=== PATIENT | male | born 1985 | race Caucasian/White ===

== ENCOUNTER → 2020-12-23 16:20 | Outpatient (CLI) | payer OTHER, SELFPAY ==
--- NOTE | ~2020-12-23 | XR_ITS ---
XR lumbar spine 2-3V DATE: 12/23/2020 17:08 INDICATION: Chronic bilateral low back pain with left sciatica TECHNIQUE: Standing AP, lateral and coned lateral lumbosacral views COMPARISON: None FINDINGS: No fracture or bone destruction is evident. The included lower thoracic and lumbar pedicles are intact. Lumbar and lumbosacral interspaces are well preserved. The sacroiliac joints appear norm al. IMPRESSION: Negative Reviewed, dictated and finalized at location A. IMPRESSION: Negative
== END ==
DX: M54.42 Lumbago with sciatica, left side (principal)
CPT/HCPCS: 72100